=== PATIENT | female | born 2005 | race Hispanic/Latino ===

== ENCOUNTER 2024-06-26 11:40 | Emergency (ER) | payer OTHER, SELFPAY ==
--- NOTE | 2024-06-26 11:44 | ED_ITS ---
HPI - URI/Sore Throat General Chief Complaint: Upper Respiratory Infection Stated Complaint: sore throat,cough Time Seen by Provider: 06/26/24 11:44 Source: patient Mode of arrival: ambulatory Limitations: no limitations History of Present Illness HPI Narrative: Kriss is a 19-year-old female patient presenting to the clinic today with complaints of sore throat and body aches. She reports strep throat started 6 days ago and she developed some of body aches today. No known fever. Denies any nausea vomiting or diarrhea. Denies any headache. No URI symptoms Related Data Home Medications ?Medication ?Instructions ?Recorded ?Confirmed ?Last Taken ?Type No Home Medications 06/26/24 06/26/24 Unknown History Allergies Allergy/AdvReac Type Severity Reaction Status Date / Time No Known Allergies Allergy Verified 06/26/24 11:59 Review of Systems Review of Systems: Pertinent positives per HPI. Patient denies any fever, chills, rash, headache, visual changes, dizziness, cough, shortness of breath, chest pain, palpitations, nausea, vomiting, diarrhea, constipation, abdominal pain, or any urinary issues. PMFSH Comments At the time of my signature, I reviewed and agree with the nursing past medical, surgical, social, and family history. There is no relevant family history pertinent to the patient complaint. Exam Narrative: General: Well-developed, well nourished, in no apparent distress Head: Normocephalic, atraumatic Eyes: Pupils equally round and reactive to light bilaterally, EOM intact, sclera and conjunctive clear, no discharge, lids normal Ears: TMs intact and clear, ear canals clear, no drainage, grossly hearing normal. Nose: Nares patent, no discharge, no inflammation, no sinus tenderness. Mouth: Oral pharynx red without lesions or masses, good dentition, MMM. Neck: Supple, trachea midline, no enlargement of anterior or posterior cervical nodes, no thyroid masses or goiter palpable. Cardio: Regular rate and rhythm, s1 and s2 normal, no murmur appreciated. Resp: Clear to auscultation bilaterally, no rhonchi, rales, wheezing or rubs Course Course Emergency Course: Portions of this record may have been created with voice recognition software. Level of Care: Express Care Visit Vital Signs Vital signs: Vital Signs Temperature 36.6 C 06/26/24 11:55 Pulse Rate 73 06/26/24 11:55 Respiratory Rate 16 06/26/24 11:55 Blood Pressure 99/75 L 06/26/24 11:55 Pulse Oximetry 100 06/26/24 11:55 Temperature 36.6 C 06/26/24 11:55 Pulse Rate 73 06/26/24 11:55 Respiratory Rate 16 06/26/24 11:55 Blood Pressure 99/75 L 06/26/24 11:55 Pulse Oximetry 100 06/26/24 11:55 Vital signs reviewed MDM - URI/Sore Throat MDM Narrative Medical decision making narrative: At the time of visit patient is resting comfortably on the exam table. Patient appears to be nontoxic. Labs: Strep test was performed and was negative in the clinic today. We will send strep for culture. Plan: I suspect patient has pharyngitis. Supportive measures were discussed with the patient and they voiced understanding discharge instructions and agrees to treatment plan. Return precautions reviewed Differential Diagnosis Differential diagnosis: Likely upper respiratory infection, otitis media, sinusitis, viral infection, bronchitis, influenza, pharyngitis and other (COVID) Discharge Plan Discharge Clinical Impression: Pharyngitis Qualifiers: Pharyngitis/tonsillitis etiology: unspecified etiology Qualified Code(s): J02.9 - Acute pharyngitis, unspecified Patient Disposition: Home Condition: Stable Instructions: Antibiotic Form, Pharyngitis (ED) Additional Instructions: Strep test was negative in the clinic today. We will send strep for culture. Increase fluids and stay well hydrated Tylenol/motrin for pain/fever Flonase and OTC antihistamines as directed Vicks vapor rub to open sinuses Sinus rinses for congestion Cepacol spray, cough drops, throat lozenges, warm tea with honey/lemon, gargle salt water to soothe throat BRAT diet for diarrhea Clear liquids x 24 hours then advance as tolerated for nausea/vomiting Go to the ED if you develop a worsening in your condition- high fever not controlled by Tylenol or Motrin, dehydration, weakness, lethargy, shortness of breath, or chest pain. Follow up with your PCP in 3-5 days if symptoms persist. Patient Language: Arabic Prescriptions: No Action No Home Medications Follow-up/Referrals: PHYSICIAN,[facility]ER [Primary Care Provider] - Stand Alone Forms: Work/School Release IP Time of Disposition: 12:03 Quality [facility] Nursing Documentation ED NIHSS nursing documentation: reviewed/agree
[2024-06-26 11:55] VITALS: BP 99/75; PULSE 73; RESP 16; TEMP 36.6; O2SAT 100
[2024-06-26 12:05] LABS: EDSTREPNEGPOS1 Negative (Negative)
== END 2024-06-26 12:05 | disposition home or self-care (01) ==
PROVIDERS: Emergency Provider Nurse Practitioner Family
DX: J02.9 Acute pharyngitis, unspecified (principal)
CPT/HCPCS: 87081; 87880; 99203; G0463